=== PATIENT | male | born 1990 | race Caucasian/White ===

== ENCOUNTER 2017-06-29 19:24 | Emergency (ER) | payer OTHER ==
[2017-06-29 19:45] VITALS: BP 147/70; PULSE 78; TEMP 98; BMI 31.1
[2017-06-29] MEDS ORDERED: LIDOCAINE HCL 1%, 10 MG/ML (20ML VIAL) ONE (20:19)
[2017-06-29] MEDS ORDERED: LIDOCAINE HCL 1%, 10 MG/ML (50 mL VIAL) SQ ONE (20:33)
[2017-06-29] MEDS ORDERED: CEPHALEXIN MONOHYDRATE 500 MG CAPSULE (UD) PO ONE (20:35)
[2017-06-29] MEDS ORDERED: SULFAMETHOXAZOLE/TRIMETHOPRIM 800MG/160MG D.S. TABLET PO ONE (20:35)
--- NOTE | 2017-06-29 20:43 | PDOC ---
History of Present Illness - General Chief Complaint: Pain Stated Complaint: ABSCESS BOIL Time Seen by Provider: 06/29/17 20:06 History Source: Patient - History of Present Illness Initial Comments: 07/02/17 05:07 27 year old male with right plantar foot infected blister x2 days with worsening pain and surrounding erythema. denies fever, NVD, abdominal pain. no streaking noted denies pmhx Past History - Past Medical History Allergies/Adverse Reactions: Allergies Allergy/AdvReac Type Severity Reaction Status Date / Time No Known Allergies Allergy Verified 06/29/17 19:42 Home Medications: Ambulatory Orders Cephalexin Monohydrate [Keflex -] 500 mg PO Q8H #30 capsule 06/29/17 Sulfamethoxazole/Trimethoprim [Bactrim Ds -] 1 tab PO DAILY #20 tablet 06/29/17 Other medical history: Pt denies - Psycho/Social/Smoking Cessation Hx Anxiety: No Suicidal Ideation: No Smoking History: Never smoked Have you smoked in the past 12 months: No Information on smoking cessation initiated: No Hx Alcohol Use: No Drug/Substance Use Hx: No Substance Use Type: None Review of Systems - Review of Systems Able to Perform ROS?: Yes Is the patient limited Monegasque proficient: No Constitutional: No: Symptoms Reported, See HPI, Chills, Diaphoresis, Fever, Loss of Appetite, Malaise, Night Sweats, Weakness, Weight Stable, Unintentional Wgt. Loss, Unexplained wgt Loss, Other Musculoskeletal: Yes: Other (infected blister) Integumentary: Yes: Erythema (plantar foot) *Physical Exam - Vital Signs Last Vital Signs Temp Pulse Resp BP Pulse Ox 98.0 F 78 19 147/70 98 06/29/17 19:42 06/29/17 19:42 06/29/17 19:42 06/29/17 19:42 06/29/17 19:42 - Physical Exam General Appearance: Yes: Appropriately Dressed Extremity: positive: Normal Capillary Refill, Normal Inspection, Erythema ( plantar foot with pus filled blister that is dime sized), Other (no streaking noted) Integumentary: positive: Normal Color, Dry, Warm Procedures - Incision and Drainage I&D Site: Left: Other (left plantar infected blister ) Betadine cleansed: Yes Anesthesia: 1% Lidocaine Blade Size: 10 Plain Packing: No Complications: none Dressing: Yes Progress: 06/29/17 20:46 ~ 1ml of pus drained from blister. Medical Decision Making - Medical Decision Making 06/29/17 20:46 A: I&D of foot blister P: see procedure note. cephalexin and bactrim podiatry follow up *DC/Admit/Observation/Transfer Diagnosis at time of Disposition: Encounter for incision and drainage procedure Blister of foot, left, infected Qualifiers: Encounter type: initial encounter Qualified Code(s): S90.822A - Blister ( nonthermal), left foot, initial encounter - Discharge Dispostion Disposition: HOME - Prescriptions Prescriptions: Sulfamethoxazole/Trimethoprim [Bactrim Ds -] 1 tab PO DAILY #20 tablet Cephalexin Monohydrate [Keflex -] 500 mg PO Q8H #30 capsule - Referrals Referrals: Martínez Joseph MD [Primary Care Provider] - Paulino Vizcaino MD [Staff Physician] - 3 days - Patient Instructions Printed Discharge Instructions: DI for Incision and Drainage of a Skin Abscess Additional Instructions: follow up with warehouse delivery manager as soon as possible. return to the ER if symptoms worsen. - Post Discharge Activity Work/School Note: Back to Work
[2017-06-29] MEDS ORDERED: SULFAMETHOXAZOLE/TRIMETHOPRIM 800MG/160MG D.S. TABLET ONE (20:52)
[2017-06-29] MEDS ORDERED: CEPHALEXIN MONOHYDRATE 250 MG CAPSULE (FP) ONE (20:52)
--- NOTE | 2017-06-29 20:52 | PDOC ---
*Physical Exam - Vital Signs Last Vital Signs Temp Pulse Resp BP Pulse Ox 98.0 F 78 19 147/70 98 06/29/17 19:42 06/29/17 19:42 06/29/17 19:42 06/29/17 19:42 06/29/17 19:42 Medical Decision Making - Medical Decision Making 06/29/17 20:52 agree with care from GUN [employer]BER Mani *DC/Admit/Observation/Transfer Diagnosis at time of Disposition: Encounter for incision and drainage procedure Blister of foot, left, infected Qualifiers: Encounter type: initial encounter Qualified Code(s): S90.822A - Blister ( nonthermal), left foot, initial encounter - Discharge Dispostion Disposition: HOME - Referrals Referrals: Paulino Vizcaino MD [Staff Physician] - 3 days Martínez Joseph MD [Primary Care Provider] - - Patient Instructions Printed Discharge Instructions: DI for Incision and Drainage of a Skin Abscess Additional Instructions: follow up with business analysis analyst as soon as possible. return to the ER if symptoms worsen. - Post Discharge Activity Work/School Note: Back to Work
== END 2017-06-29 20:57 | disposition home or self-care (01) ==
LOC: JER 19:24
PROC: 0H9NXZZ Drainage of Left Foot Skin, External Approach (ICD-10-PCS; principal; 2017-06-29)
DX: S90.822A Blister (nonthermal), left foot, initial encounter (principal)
CPT/HCPCS: 17999; 87070; 87186; 87205; 99281-25

== ENCOUNTER 2019-12-18 21:50 | Emergency (ER) | payer SELFPAY ==
[2019-12-18 22:13] VITALS: BP 142/93; PULSE 71; TEMP 98.3; BMI 31.4
--- NOTE | 2019-12-18 23:36 | PDOC ---
History of Present Illness - General Stated Complaint: CHEST PAIN Time Seen by Provider: 12/18/19 23:36 History Source: Patient Exam Limitations: No Limitations - History of Present Illness Initial Comments: 12/18/19 23:36 Mervin Degroot is a 29M presenting with chest pain. In 2016 patient had epigastric pain, diagnosed with gastritis at [facility] ED and sent home on either and H2 cierra or PPI 30 day supply, took medication but ran out and symptoms returned intermittently. Since then has had epigastric pain on and off, took OTC Zantac until it was pulled from market recently. Yesterday 2AM woke from sleep with epigastric abdominal pain described as squeezing pain under R costal margin with some pain shooting to R back, constant, started 03/27 now 07/27, unrelated to meals, worse at night. Denies N/V, F/C, C/D, urinary sx, history of renal stones. Denies cardiac history, palpitations, SOB, chest pain. Has no PMD, has never had endoscopy. Says he has had some black stools last week. Last meal 3 spoons of rice and soup. Frequent belching. Denies GB disease, denies all alcohol use says it makes the pain worse so he doesn't drink. Non-smoker. Denies drugs. Past History - Past Medical History Allergies/Adverse Reactions: Allergies Allergy/AdvReac Type Severity Reaction Status Date / Time No Known Allergies Allergy Verified 12/18/19 22:11 Home Medications: Ambulatory Orders Cephalexin Monohydrate [Keflex -] 500 mg PO Q8H #30 capsule 06/29/17 Sulfamethoxazole/Trimethoprim [Bactrim Ds -] 1 tab PO DAILY #20 tablet 06/29/17 Omeprazole 20 mg PO DAILY 30 Days #30 tablet. 12/19/19 COPD: No GI Disorders: Yes (GASTRITIS) - Immunization History Immunization Up to Date: No - Psycho Social/Smoking Cessation Hx Smoking History: Never smoked Have you smoked in the past 12 months: No Hx Alcohol Use: No Drug/Substance Use Hx: No Substance Use Type: None Review of Systems - Review of Systems Able to Perform ROS?: Yes Constitutional: No: Chills, Fever HEENTM: No: Symptoms Reported Respiratory: No: Cough, Shortness of Breath, Wheezing, Productive cough Cardiac (ROS): Yes: Chest Pain, Irregular Heart Rate. No: Lightheadedness, Palpitations, Syncope ABD/GI: Yes: Poor Appetite, Poor Fluid Intake. No: Constipated, Diarrhea, Nausea, Vomiting Musculoskeletal: Yes: Back Pain. No: Muscle Pain, Muscle Weakness Integumentary: No: Symptoms Reported Neurological: No: Headache, Numbness, Paresthesia, Seizure, Unsteady Gait, Ataxia, Dizziness Endocrine: No: Symptoms Reported Hematologic/Lymphatic: No: Symptoms Reported All Other Systems: Reviewed and Negative *Physical Exam - Vital Signs Last Vital Signs Temp Pulse Resp BP Pulse Ox 98.3 F 71 20 142/93 100 12/18/19 22:12 12/18/19 22:12 12/18/19 22:12 12/18/19 22:12 12/18/19 22:12 - Physical Exam General Appearance: Yes: Nourished, Appropriately Dressed, Moderate Distress, Obese, Other (lying down in bed, cannot stay in one position for long, mild diaphoresis) HEENT: positive: EOMI, Normal ENT Inspection, Normal Voice, Symmetrical, Pharynx Normal, Hearing Grossly Normal. negative: JUANJOSE, Scleral Icterus (R), Scleral Icterus (L), Pharyngeal Erythema, Tonsillar Exudate, Tonsillar Erythema Neck: positive: Normal Thyroid, Supple. negative: Tender, Decreased range of motion, Lymphadenopathy (R), Lymphadenopathy (L), Tender lateral, Tender midline Respiratory/Chest: positive: Lungs Clear, Normal Breath Sounds. negative: Chest Tender, Respiratory Distress, Labored Respiration, Crackles, Rales, Rhonchi, Stridor, Wheezing Cardiovascular: positive: Regular Rhythm, Regular Rate. negative: Murmur Gastrointestinal/Abdominal: positive: Normal Bowel Sounds, Tender (epigastric, tender below L side rib cage extending to L upper back), Flat, Soft. negative: Organomegaly, Pulsatile Mass, Distended, Guarding, Rebound, Hepatomegaly, Spleenomegaly Musculoskeletal: positive: Normal Inspection. negative: CVA Tenderness, Decreased Range of Motion, Vertebral Tenderness Extremity: positive: Normal Capillary Refill, Normal Inspection, Normal Range of Motion. negative: Tender, Pelvis Stable Integumentary: positive: Normal Color, Warm, Diaphoresis Neurologic: positive: Fully Oriented, Alert, Normal Mood/Affect, Normal Response , Motor Strength 5/5 ED Treatment Course - LABORATORY CBC & Chemistry Diagram: 12/19/19 00:23 12/19/19 00:23 Medical Decision Making - Medical Decision Making 12/19/19 01:13 Patient presents with history of gastritis and right upper abdominal pain and epigastric pain without N/V that is highly consistent with GI etiology. Evaluating for cardiac etiology as well, but no risk factors and not likely from history. Other GI causes include pancreatitis, GB pathology, peptic ulcers. - CMP/CBC for eval lytes/infection - CP/ECG/CXR for eval cardiac etiology of pain - CTAP for eval for intraabdominal pathology - Pepcid/Maalox/IV NS for gastritis pain 12/19/19 03:27 Patient was reporting mild abd pain again. Ordered Protonix, Ofirmev, and carafate. Patient re-evaluated, abd pain gone, non-tender, feeling well. Labs notable for: - CMP WNL - CBC WNL - CP WNL CXR unremarkable ECG shows NSR with J point elevations in II, aVF, HR 66, QRS 96, QTc 404, no TWI or ischemic changes. Discharging home with omeprazole, GI f/u, and PMD referral. Discharge - Discharge Information Problems reviewed: Yes Clinical Impression/Diagnosis: Epigastric pain Gastritis Qualifiers: Gastritis type: unspecified gastritis Chronicity: acute Gastritis bleeding: presence of bleeding unspecified Qualified Code(s): K29.00 - Acute gastritis without bleeding - Additional Discharge Information Prescriptions: Omeprazole 20 mg PO DAILY 30 Days #30 tablet.dr - Follow up/Referral Referrals: Patricio Reyna MD [Staff Physician] - [facility] [place] [Provider Group] - Patient Discharge Instructions Patient Printed Discharge Instructions: DI for Gastritis, DI for Abdominal Pain -Adult Additional Instructions: Today you were evaluated for stomach pain. We gave you medications called omeprazole, famotidine, Maalox, and carafate for your pain and you felt better. We are sending you home with omeprazole for 30 days, take one day and see a GI doctor for follow-up. You need an endoscopy to check your stomach. At home, avoid alcohol and spicy foods. We have referred you to our medicine clinic for further care. If you experience worsening pain, chest pain, nausea, vomiting, or any other new or concerning symptoms, please return to the emergency room. - Post Discharge Activity Work/Back to School Note: Back to Work
--- NOTE | 2019-12-18 23:42 | PDOC ---
Attending Attestation - Resident Resident Name: Dmitri Benjamin - ED Attending Attestation I have performed the following: I have examined & evaluated the patient, The case was reviewed & discussed with the resident, I agree w/resident's findings & plan - HPI HPI: 12/19/19 00:26 see resident hpi - Physicial Exam PE: 12/19/19 00:26 see resident exam - Medical Decision Making 12/19/19 00:31 29-year-old male with history of possible gastritis with no endoscopy done in the past complaining of increasing upper abdominal pain after abruptly stopping Zantac due to recall Patient states he did have severe pain and dark stool last week Pain radiates into the left chest Plan for labs, EKG and CT scan of the abdomen pelvis to rule out perforation Pepcid, Maalox and Carafate given, IV fluid normal saline 1 L Plan for reevaluation pending results
[2019-12-18] MEDS ORDERED: FAMOTIDINE 20 MG/50 ML IVPB 20 MG/50 ML MG IVPB ONE (23:55)
[2019-12-18] MEDS ORDERED: MAG HYDROX/AL HYDROX/SIMETH 30 ML UNIT-DOSE CUP PO ONE (23:55)
[2019-12-19] MEDS ORDERED: SODIUM CHLORIDE 0.9% 500 ML INFUS.BAG IV ONE (00:10)
[2019-12-19] MEDS ORDERED: FAMOTIDINE 20 MG/50 ML IVPB 20 MG/50 ML MG IVPB ONE (00:22)
[2019-12-19] MEDS ORDERED: MAG HYDROX/AL HYDROX/SIMETH 30 ML UNIT-DOSE CUP ONE (00:22)
[2019-12-19 00:52] LABS: BASO % 0.5 % (0-2.0); EOS % 1.6 % (0-4.5); HEMATOCRIT 44.6 % (35.4-49); HEMOGLOBIN 14.9 GM/dL (11.7-16.9); LYMPH % 23.6 % (8-40); MCH 31.4 pg (25.7-33.7); MCHC 33.5 g/dl (32.0-35.9); MEAN CELL VOLUME 93.8 fl (80-96); MEAN PLT VOLUME 8.7 fl (7.5-11.1); MONO % 7.2 % (3.8-10.2); NEUT % 67.1 % (42.8-82.8); PLATELET COUNT 215 K/MM3 (134-434); RBC 4.75 M/mm3 (4.00-5.60); RDW 12.7 % (11.9-15.9); WHITE BLOOD COUNT 9.7 K/mm3 (4.0-10.0)
[2019-12-19 01:06] LABS: PROTHROMBIN TIME (PATIENT) 11.8 SEC (9.7-13.0)
[2019-12-19 01:08] LABS: ACTIVATED PTT 31.8 SECONDS (25.2-36.5)
[2019-12-19 01:19] LABS: ALBUMIN 3.9 g/dl (3.4-5.0); BILIRUBIN,TOTAL 0.3 mg/dL (0.2-1); CALCIUM 8.7 mg/dL (8.5-10.1); CREATININE 0.9 mg/dL (0.55-1.3); POTASSIUM 3.9 mmol/L (3.5-5.1); TOT PROT 7.1 g/dl (6.4-8.2)
[2019-12-19] MEDS ORDERED: ACETAMINOPHEN 1000 MG/100 ML VIAL (NON FORMULARY) IVPB ONE (02:46)
[2019-12-19] MEDS ORDERED: SUCRALFATE 1 GM TABLET (FP) PO ONE (02:46)
[2019-12-19] MEDS ORDERED: PANTOPRAZOLE SODIUM 40 MG VIAL IVPUSH ONE (02:46)
[2019-12-19] MEDS ORDERED: SUCRALFATE 1 GM TABLET (FP) ONE (03:04)
[2019-12-19] MEDS ORDERED: PANTOPRAZOLE SODIUM 40 MG VIAL ONE (03:04)
--- NOTE | 2019-12-19 10:33 | EKG ---
Test Reason : Blood Pressure : / mmHG Vent. Rate : 066 BPM Atrial Rate : 066 BPM P-R Int : 190 ms QRS Dur : 096 ms QT Int : 386 ms P-R-T Axes : 046 078 047 degrees QTc Int : 404 ms NORMAL SINUS RHYTHM WITH SINUS ARRHYTHMIA NORMAL ECG NO PREVIOUS ECGS AVAILABLE Confirmed by Lawrence Grimm MD ([id number]) on 12/19/2019 10:33:02 AM Referred By: Confirmed By:Lawrence Grimm MD
== END 2019-12-19 03:30 | disposition home or self-care (01) ==
LOC: JER 21:50
PROC: 3E033GC Introduction of Other Therapeutic Substance into Peripheral Vein, Percutaneous Approach (ICD-10-PCS; principal; 2019-12-18)
PROC: 3E033GC Introduction of Other Therapeutic Substance into Peripheral Vein, Percutaneous Approach (ICD-10-PCS; 2019-12-18)
PROC: 3E033NZ Introduction of Analgesics, Hypnotics, Sedatives into Peripheral Vein, Percutaneous Approach (ICD-10-PCS; 2019-12-18)
DX: K29.00 Acute gastritis without bleeding (principal)
CPT/HCPCS: 36415; 71046-TC-FY; 74177-TC; 80053; 82550; 83690; 84484; 85025; 85610; 85730; 93005; 93010; 99285-25; J0131

== ENCOUNTER 2021-02-26 04:31 | Emergency (ER) | payer OTHER ==
[2021-02-26 04:56] VITALS: BP 150/89; PULSE 86; TEMP 98.4; BMI 33.0
[2021-02-26] MEDS ORDERED: FAMOTIDINE 20 MG/50 ML IVPB 20 MG/50 ML MG IVPB ONE ×2 (05:14→05:27)
[2021-02-26] MEDS ORDERED: SODIUM CHLORIDE 0.9% 500 ML INFUS.BAG IV ONE (05:14)
[2021-02-26] MEDS ORDERED: SUCRALFATE 1 GM/10 ML UNIT DOSE CUPS PO ONE (05:15)
[2021-02-26] MEDS ORDERED: SUCRALFATE 1 GM TABLET (FP) ONE (05:20)
[2021-02-26] MEDS ORDERED: SUCRALFATE 1 GM TABLET (FP) PO ONE (05:20)
[2021-02-26 05:44] LABS: BASO % 0.9 % (0-2.0); EOS % 1.6 % (0-4.5); HEMATOCRIT 43.2 % (35.4-49); HEMOGLOBIN 15.3 GM/dL (11.7-16.9); LYMPH % 31.1 % (8-40); MCH 32.7 pg (25.7-33.7); MCHC 35.5 g/dl (32.0-35.9); MEAN CELL VOLUME 92.1 fl (80-96); MEAN PLT VOLUME 8.2 fl (7.5-11.1); MONO % 9.3 % (3.8-10.2); NEUT % 57.1 % (42.8-82.8); PLATELET COUNT 231 K/MM3 (134-434); RBC 4.69 M/mm3 (4.00-5.60); RDW 13.2 % (11.9-15.9); WHITE BLOOD COUNT 9.6 K/mm3 (4.0-10.0)
[2021-02-26 06:04] LABS: CHLORIDE 108 mmol/L (98-107); SODIUM 140 mmol/L (136-145)
[2021-02-26 06:06] LABS: ANION GAP 4 MMOL/L (8-16); BLOOD UREA NITROGEN 12.1 mg/dL (7-18); CALCIUM 8.4 mg/dL (8.5-10.1); CO2 28 mmol/L (21-32); GLUCOSE,RANDOM 91 mg/dL (74-106)
[2021-02-26 06:07] LABS: ALBUMIN 4.1 g/dl (3.4-5.0)
[2021-02-26 06:09] LABS: CREATININE 0.9 mg/dL (0.55-1.3)
[2021-02-26 06:10] LABS: SGOT/AST 25 U/L (15-37); SGPT/ALT 32 U/L (13-61)
[2021-02-26 06:11] LABS: TOT PROT 7.6 g/dl (6.4-8.2)
[2021-02-26 06:13] LABS: ALK PHOS 80 U/L (45-117)
[2021-02-26] MEDS ORDERED: MAG HYDROX/AL HYDROX/SIMETH 30 ML UNIT-DOSE CUP PO ONE (06:47)
[2021-02-26] MEDS ORDERED: MAG HYDROX/AL HYDROX/SIMETH 30 ML UNIT-DOSE CUP ONE (07:15)
[2021-02-26] MEDS ORDERED: ACETAMINOPHEN 1000 MG/100 ML VIAL (NON FORMULARY) IVPB ONE (08:11)
[2021-02-26] MEDS ORDERED: ACETAMINOPHEN INJECTION 100 ML IVPB ONE (09:20)
== END 2021-02-26 10:09 | disposition home or self-care (01) ==
LOC: JER 04:31
PROC: 3E0333Z Introduction of Anti-inflammatory into Peripheral Vein, Percutaneous Approach (ICD-10-PCS; principal; 2021-02-26)
PROC: 3E033GC Introduction of Other Therapeutic Substance into Peripheral Vein, Percutaneous Approach (ICD-10-PCS; 2021-02-26)
PROC: 3E033GC Introduction of Other Therapeutic Substance into Peripheral Vein, Percutaneous Approach (ICD-10-PCS; 2021-02-26)
PROC: 3E033GC Introduction of Other Therapeutic Substance into Peripheral Vein, Percutaneous Approach (ICD-10-PCS; 2021-02-26)
DX: R10.13 Epigastric pain (principal)
CPT/HCPCS: 36415; 71046-TC-FY; 76705-TC; 80053; 82550; 82553; 83690; 84484; 85025; 93005; 93010; 99285-25; J0131

== ENCOUNTER 2022-03-10 20:21 | Emergency (ER) | payer OTHER ==
[2022-03-10 20:38] VITALS: BMI 30.1
[2022-03-10] MEDS ORDERED: DEXAMETHASONE SOD PHOSPHATE 10 MG/1 ML VIAL IVPUSH ONE (22:18)
[2022-03-10] MEDS ORDERED: KETOROLAC TROMETHAMINE 30 MG/1 ML VIAL IVPUSH ONE (22:18)
[2022-03-10] MEDS ORDERED: SODIUM CHLORIDE 0.9% 500 ML INFUS.BAG IV ONE (22:18)
[2022-03-10] MEDS ORDERED: KETOROLAC TROMETHAMINE 30 MG/1 ML VIAL ONE (22:38)
[2022-03-10] MEDS ORDERED: DEXAMETHASONE SOD PHOSPHATE 10 MG/1 ML VIAL ONE (22:38)
[2022-03-10] MEDS ORDERED: diphenhydrAMINE HCL 25 MG CAPSULE (FP) PO ONE (23:30)
[2022-03-11] MEDS ORDERED: diphenhydrAMINE HCL 25 MG CAPSULE (FP) PO ONE (00:03)
[2022-03-11 00:51] VITALS: BP 133/76; PULSE 81; TEMP 97.8
== END 2022-03-11 00:59 | disposition home or self-care (01) ==
LOC: JER 20:21
PROC: 3E033GC Introduction of Other Therapeutic Substance into Peripheral Vein, Percutaneous Approach (ICD-10-PCS; principal; 2022-03-10)
PROC: 3E0333Z Introduction of Anti-inflammatory into Peripheral Vein, Percutaneous Approach (ICD-10-PCS; 2022-03-10)
DX: J02.8 Acute pharyngitis due to other specified organisms (principal)
CPT/HCPCS: 0241U-QW; 87651; 87804; 99284-25; J1100